=== PATIENT | female | born 1955 | race Caucasian/White ===

== ENCOUNTER 2017-07-09 15:13 | Emergency (ER) | payer BC, SELFPAY ==
[2017-07-09 15:19] VITALS: BP 142/62; PULSE 79; RESP 16; TEMP 36.7; O2SAT 100; BMI 26.6
--- NOTE | 2017-07-09 15:22 | ED.SYNCOPE ---
HPI - Syncope General Chief Complaint: Abdominal Pain Stated Complaint: syncope Time Seen by Provider: 07/09/17 15:22 Source: patient and EMS Mode of arrival: ambulatory Limitations: no limitations History of Present Illness HPI narrative: Patient is a 61-year-old female who presents with a syncopal episode. She was at lunch some friends she was in the corner 27 was beating down on her she had some abdominal discomfort she felt extremely lightheaded and passed out briefly. She has a history of seizures she said she did not have a seizure she did not have convulsions she is or what she postictal. Her seizure history is quite and she has not had them for a number of years and she takes Tegretol daily. She did however have some milk which she does not normally have she is lactose intolerant. She had some abdominal cramping at the same time within a hot corner and felt claustrophobic and passed out briefly. She felt her face get flushed with heart palpitations no nausea or vomiting. Her abdominal pain is much improved now. MD complaint: felt faint Onset (ago): minute(s) Witnessed: yes - by bystander Current symptoms: none Related Data Home Medications Medication Instructions Recorded Confirmed Calcium 1 tab PO DAILY 07/09/17 07/09/17 Vitamin B6 1 tab PO DAILY 07/09/17 07/09/17 Vitamin D3 1 cap PO DAILY 07/09/17 07/09/17 carbamazepine 200 mg PO BID 07/09/17 07/09/17 simvastatin 40 mg PO QHS 07/09/17 07/09/17 Allergies Allergy/AdvReac Type Severity Reaction Status Date / Time No Known Drug Allergies Allergy Verified 07/09/17 17:08 Review of Systems Review of Systems All systems reviewed & are unremarkable except as noted in HPI and below Constitutional Denies chills, Denies fever(s), Denies frequent falls, Denies headache(s), Denies lethargy and Denies weakness Eyes Denies blurry vision and Denies change in vision ENT Ears, Nose, Mouth, and Throat: Denies dizziness and Denies headache(s) Cardiovascular Reports as per HPI, Reports system reviewed and no additional complaints, except as docu, Reports syncope, Denies dyspnea and Denies dyspnea on exertion Respiratory Denies cough, Denies dyspnea, Denies dyspnea on exertion and Denies wheezing Gastrointestinal Gastrointestinal: Denies abdominal pain, Denies change in bowel habits, Denies diarrhea, Denies nausea and Denies vomiting Musculoskeletal Denies back pain, Denies muscle weakness, Denies numbness and Denies tingling Integumentary/Breasts Denies pruritus, Denies erythema, Denies rash and Denies wounds Neurologic Denies confusion, Denies dizziness, Reports syncope, Denies frequent falls, Denies headache(s), Denies numbness, Denies tingling, Denies tremor(s) and Denies weakness Psychiatric Denies confusion Allergic/Immunologic Denies wheezing [facility] Medical History Seizure (Acute) Social History Smoking Status: Never smoker Exam Initial Vital Signs Initial Vital Signs: Vital Signs Temperature 98.0 F 07/09/17 15:19 Pulse Rate 79 07/09/17 15:19 Respiratory Rate 16 07/09/17 15:19 Blood Pressure 142/62 H 07/09/17 15:19 Pulse Oximetry 100 07/09/17 15:19 Const General: cooperative and well developed Nutritional Appearance: well nourished Orientation: alert, awake, oriented x3 and not confused HENMT Head: normal to inspection and normocephalic Eyes Eyelids: eyelids normal Pupils: PERRL EOM: EOM intact bilaterally Resp Effort & Inspection: normal respiratory effort, able to speak in complete sentences, no respiratory distress and no use of accessory muscles Auscultation: clear to auscultation bilaterally, no rales, no rhonchi and no wheezes Cardio Rate: regular rate Rhythm: regular rhythm Heart Sounds: no click, no gallops, no murmurs and no rubs Pulses: normal peripheral pulses GI Inspection: non-distended Palpation: soft, no hepatosplenomegaly, No guarding, No pulsatile mass and No tender Auscultation: normal bowel sounds Skin General: no rashes or lesions noted, No jaundice and No petechiae Neuro General: alert, oriented x3, gait normal and no focal motor deficits Speech: speech normal Motor: muscle tone normal throughout and strength 5/5 throughout Coordination: [id number] test normal Course Hospital Course: Patient does not want an IV or IV fluids but she is okay with the lab drawn and an EKG. Orders Ordered: ED Orders 07/09/17 15:22 EKG-12 Lead Stat 07/09/17 15:40 Complete Blood Count AUTO DIFF Stat Comprehensive Metabolic Panel Stat Lipase Stat Vital Signs - 8 hr 07/09/17 15:19 07/09/17 16:30 07/09/17 17:05 Temperature 98.0 F Pulse Rate 79 75 73 Respiratory Rate 16 15 14 Blood Pressure 142/62 H Blood Pressure [Left Arm] 132/63 H 116/68 Pulse Oximetry 100 98 99 MDM - Syncope Lab Data Result diagrams: 07/09/17 15:40 07/09/17 15:40 Lab Results 07/09/17 07/09/17 Range/Units 15:40 15:40 WBC 6.1 (4.5-11.0) X10^3/uL RBC 4.45 (4.0-5.2) X10^6/uL Hgb 13.9 (12.0-16.0) g/dL Hct 39.7 (36-46) % MCV 89.3 (80-100) fL MCH 31.4 (26-34) PG MCHC 35.1 (30-36) % RDW 12.1 (11.6-14.8) % Plt Count 123 L (150-400) X10^3/uL Neut % (Auto) 69.5 (50-75) % Lymph % (Auto) 23.4 L (25-40) % Wilkinson % (Auto) 5.8 (3-14) % Eos % (Auto) 0.9 L (2-4) % Baso % (Auto) 0.4 (0-2) % Neut # (Auto) 4200 (2775-7268) /uL Sodium 140 (137-145) mmol/L Potassium 4.0 (3.4-5.1) mmol/L Chloride 98 (98-107) mmol/L Carbon Dioxide 32 (22-32) mmol/L BUN 14 (7-17) mg/dL Creatinine 0.70 (0.52-1.04) mg/dL Estimated GFR > 60.0 (>60) mL/min BUN/Creatinine Ratio 20.0 (6-22) Glucose 103 (80-110) mg/dL Calcium 9.5 (8.4-10.2) mg/dL Total Bilirubin 0.4 (0.2-1.3) mg/dL AST 31 (14-36) IU/L ALT 35 (9-52) IU/L Alkaline Phosphatase 96 (38-126) U/L Total Protein 7.2 (6.3-8.2) g/dL Albumin 4.4 (3.5-5.0) g/dL Globulin 2.8 (1.7-4.1) g/dL Albumin/Globulin Ratio 1.6 (1.0-2.8) Lipase 637 H (23-300) U/L MDM Narrative Medical decision making narrative: Lipase is noted to be slightly elevated about 600. She is tolerating oral fluids she does not have any severe abdominal pain. It did discuss with this with her the for pain should return she needs to to come back to the ED. I recommend that she increase her fluid intake. All questions have been addressed. Patient likely had a vasovagal reaction due to multiple factors on including pain, temperature and claustrophobia Discharge Plan Departure Patient Disposition: Home, Self-Care Clinical Impression: Syncope, vasovagal, Elevated lipase Discharge Date/Time: 07/09/17 17:07 Interventions: ED Discharge Assessment Last Done: 07/09/17 17:06 Activity Restrictions/Additional Instructions: *You have been diagnosed with vasovagal reaction, elevated lipase *What to do: Increase fluids, eat frequent meal *Continue to take medications as directed *Follow up with your primary care provider in 2-3 days *Return to ER if you should have increasing abdominal pain, recurrence episode of passing out or any new, worsening or concerning symptoms Prescriptions: No Action simvastatin 40 mg tablet 40 mg PO QHS RF: 0 carbamazepine 200 mg tablet extended release 12 hr 200 mg PO BID RF: 0 Calcium tablet 1 tab PO DAILY RF: 0 Vitamin B6 tablet 1 tab PO DAILY RF: 0 Vitamin D3 capsule 1 cap PO DAILY RF: 0 Referrals: Heri Mckinney MD [Primary Care Provider] -
--- NOTE | 2017-07-09 15:28 | PC.NURSE ---
Pt felt hot and lightheaded after feeling cramping and pain in her abdomen. She states she has a history of heat stroke and is very sensitive to heat. She had a syncopal episode, but denies any injuries.
[2017-07-09 15:48] LABS: Add Manual Diff / Slide Review NO; Basophils Percent Auto 0.4 % (0-2); Eosinophils Percent Auto 0.9 % (2-4); Hematocrit 39.7 % (36-46); Hemoglobin 13.9 g/dL (12.0-16.0); Lymphocytes Percent Auto 23.4 % (25-40); Mean Corpuscular HGB Conc 35.1 % (30-36); Mean Corpuscular Hemoglobin 31.4 PG (26-34); Mean Corpuscular Volume 89.3 fL (80-100); Monocytes Percent Auto 5.8 % (3-14); Neutrophils Absolute Auto 4200 /uL (3000-5900); Neutrophils Percent Auto 69.5 % (50-75); Platelet Count 123 X10^3/uL (150-400); Red Blood Cell Count 4.45 X10^6/uL (4.0-5.2); Red Cell Distribution Width 12.1 % (11.6-14.8); White Blood Cell Count 6.1 X10^3/uL (4.5-11.0)
[2017-07-09 16:05] LABS: Alanine Aminotransferase 35 IU/L (9-52); Albumin 4.4 g/dL (3.5-5.0); Albumin Globulin Ratio 1.6 (1.0-2.8); Alkaline Phosphatase 96 U/L (38-126); Aspartate Aminotransferase 31 IU/L (14-36); Bilirubin Total 0.4 mg/dL (0.2-1.3); Blood Urea Nitrogen 14 mg/dL (7-17); Calcium 9.5 mg/dL (8.4-10.2); Carbon Dioxide 32 mmol/L (22-32); Chloride 98 mmol/L (98-107); Estimated Glomerular Filt Rate > 60.0 mL/min (>60); Globulin 2.8 g/dL (1.7-4.1); Glucose 103 mg/dL (80-110); HEMOLYSIS 20 (0-50); Lipase 637 U/L (23-300); Sodium 140 mmol/L (137-145); Total Protein 7.2 g/dL (6.3-8.2)
[2017-07-09 16:30] VITALS: BP 132/63; PULSE 75; RESP 15; O2SAT 98
[2017-07-09 17:05] VITALS: BP 116/68; PULSE 73; RESP 14; O2SAT 99
== END 2017-07-09 17:07 | disposition home or self-care (01) ==
PROVIDERS: Emergency Provider Emergency Medicine; Family Provider Family Medicine; PCP Family Medicine
DX: R55 Syncope and collapse (principal); R74.8 Abnormal levels of other serum enzymes
CPT/HCPCS: 36415; 80053; 83690; 85025; 93005; 99283; 99284

== ENCOUNTER → 2017-07-21 07:48 | Outpatient (CLI) | payer BC, SELFPAY ==
--- NOTE | 2017-07-21 | DI.US.S_ITS ---
PROCEDURE: US ABDOMEN COMPLETE INDICATIONS: ELEVATED LIPASE TECHNIQUE: Real-time scanning was performed of the abdominal and retroperitoneal organs, with image documentation. COMPARISON: None. FINDINGS: Liver: Liver is normal in size and homogeneous in echotexture. Gallbladder: No gallstones identified. Normal gallbladder wall. No pericholecystic fluid. Negative sonographic Rubi sign. Biliary ducts: Intrahepatic bile ducts are non-dilated. Extrahepatic bile duct caliber measures 6 mm. Normal is 6-7 mm or less in diameter, or 10 mm or less post-cholecystectomy. Pancreas: Visualized portions of the pancreas are sonographically normal. Spleen: Spleen is normal in size and homogeneous in echotexture. Kidneys: Kidneys are normal in size and echotexture. Right kidney measures 9.6 cm long; left kidney measures 9.6 cm long. No hydronephrosis or nephrolithiasis. No solid masses. Aorta: Visualized aorta is normal in caliber at less than 3 cm. Iliacs: Proximal common iliac arteries are normal in caliber at less than 2.5 cm. IVC: Intrahepatic inferior vena cava is patent. Miscellaneous: No free abdominal fluid. IMPRESSION: 1. Normal exam. Dictated by: Alek BROWN Interpreted: Mukesh Ghosh MD on 07/21/2017 at 8:52 Approved by: Mukesh Ghosh M.D. on 07/21/2017 at 15:16
== END ==
PROVIDERS: Family Provider Family Medicine; PCP Family Medicine; Visit Provider Family Medicine
DX: R74.8 Abnormal levels of other serum enzymes (principal)
CPT/HCPCS: 76700

== ENCOUNTER → 2019-06-29 16:07 | Outpatient (CLI) | payer BC, SELFPAY ==
--- NOTE | 2019-06-29 | DI.RAD.S_ITS ---
PROCEDURE: XR LUMBAR SPINE 2-3V INDICATIONS: lumbar pain TECHNIQUE: 3 views of the lumbar spine were acquired. COMPARISON: [facility], , L-SPINE WITHOUT CONTRAST, 05/11/2007, 18:38. FINDINGS: Bones: L1 compression fracture with mild to moderate height loss. Multilevel degenerative endplate sclerosis and spurring. Diffuse facet arthropathy. Diffuse lumbar spondylosis most pronounced at L5-S1 Soft tissues: Overlying bowel gas pattern is normal. No suspicious soft tissue calcifications. IMPRESSION: Mild to moderate L1 compression fracture, which is age indeterminate in the absence of more recent comparison studies. Please correlate clinically Dictated by: Nav Cisneros M.D. on 06/29/2019 at 17:08 Approved by: Nav Cisneros M.D. on 06/29/2019 at 17:10
== END ==
PROVIDERS: Family Provider Family Medicine; PCP Family Medicine; Referring Provider Family Medicine; Visit Provider Family Medicine
DX: M54.5 Low back pain (principal); M48.56XA Collapsed vertebra, not elsewhere classified, lumbar region, initial encounter for fracture; M47.817 Spondylosis without myelopathy or radiculopathy, lumbosacral region
CPT/HCPCS: 72100

== ENCOUNTER → 2019-07-12 12:24 | Outpatient (CLI) | payer BC, SELFPAY | PROVIDERS: Family Provider Family Medicine; PCP Family Medicine; Referring Provider Family Medicine; Visit Provider Family Medicine | DX: M81.0 Age-related osteoporosis without current pathological fracture (principal); Z78.0 Asymptomatic menopausal state; S32.010A Wedge compression fracture of first lumbar vertebra, initial encounter for closed fracture; Z82.62 Family history of osteoporosis; Z87.891 Personal history of nicotine dependence | CPT/HCPCS: 77080 ==

== ENCOUNTER → 2019-08-26 13:59 | Outpatient (CLI) | payer BC, SELFPAY ==
[2019-08-26] MEDS: ZOLEDRONIC ACID 5 MG in SODIUM CHLORIDE 0.9% 100 ML 318.75 ML IV (14:57)
== END ==
PROVIDERS: Family Provider Family Medicine; PCP Family Medicine; Referring Provider Family Medicine; Visit Provider Family Medicine
DX: M81.0 Age-related osteoporosis without current pathological fracture (principal)
CPT/HCPCS: 96365; J3489

== ENCOUNTER → 2020-02-16 10:13 | Outpatient (CLI) | payer MEDICARE, SELFPAY ==
[2020-02-16 12:00] LABS: COVID19 -Nasal RAPID Negative (Negative)
== END ==
PROVIDERS: Family Provider Family Medicine; PCP Family Medicine; Visit Provider Physician Assistant
DX: Z01.812 Encounter for preprocedural laboratory examination (principal); Z20.828 Contact with and (suspected) exposure to other viral communicable diseases
CPT/HCPCS: 87635; C9803

== ENCOUNTER 2020-02-18 11:56 | Day surgery (SDC) | payer MEDICARE, SELFPAY ==
[2020-02-18] VITALS (7 sets, daily range): BP systolic 115–145; BP diastolic 58–87; PULSE 58–100; RESP 14–18; TEMP 36.3–37.1; O2SAT 94–98; BMI 25.7
--- NOTE | 2020-02-18 11:58 | P.HP_ITS ---
History of Present Illness History of Present Illness Date Patient Seen: 02/18/20 Time Patient Seen: 11:58 Chief complaint: [facility] [place] Narrative: 64 year old female comes in today for consideration of a screening colonoscopy. Last colonoscopy in 2003, normal. There have been no lower GI symptoms suggesting disease such as change in bowel habits, bleeding, abdominal pain or anemia. There's been no family history of colon cancer or colon polyps. Overall health issues have been stable, including no major cardiac events for at least 6 weeks. PCP: Dr. Mckinney Past medical history: Osteoporosis Actinic keratosis Low back pain Seizure disorder Hyperlipidemia Obstructive sleep apnea Endometriosis Lichen simplex chronicus ADD Wedge compression fracture, L1 Past surgical history: Breast reduction Nasal surgery Family history: No colon cancer colon polyps Social history: , homemaker. Patient History Medical History (Updated 07/24/17 @ 00:00 by ) Seizure Family & Social History Tobacco & Substance use: Smoking Status Never smoker Meds Home Medications and Allergies Home Medications Medication Instructions Recorded Confirmed Type Vitamin B6 1 tab PO DAILY 07/09/17 02/18/20 History calcium 200 mg PO DAILY 07/09/17 02/18/20 History carbamazepine 200 mg PO BID 07/09/17 02/18/20 History cholecalciferol (vitamin D3) 50 mcg PO DAILY 07/09/17 02/18/20 History [Vitamin D3] simvastatin 40 mg PO QHS 07/09/17 07/09/17 History atorvastatin 40 mg PO BEDTIME 02/18/20 02/18/20 History Allergies Allergy/AdvReac Type Severity Reaction Status Date / Time No Known Drug Allergies Allergy Verified 02/18/20 12:33 Review of Systems Review of Systems ROS: Yes All systems reviewed with the patient and are negative except as o therwise documented Exam Narrative Exam Narrative: GENERAL: Alert and oriented, appearing stated age and in no a cute distress. HEENT: Head normocephalic/atraumatic. Pupils equal, round, and reactive to light and accomodation. Extraocular muscles intact. Tympanic membranes clear. Nasal mucosa moist, septum midline. Oral mucosa moist, no lesions. Neck soft and supple, no lymphadenopathy. LUNGS: Clear to ausculation bilaterally, no wheezes, rhonchi or rales. CV: Normal S1 and S2 with regular rate and rhythm, no audible murmurs, rubs or gallops. ABDOMEN: Soft, non-tender, non-distended, no organomegaly. Positive bowel sounds. EXTREMITIES: No clubbing, cyanosis, or edema. NEURO: Cranial nerves II through XII grossly intact, no focal deficits. PSYCH: Alert and oriented x 3. SKIN: No concerning lesions. Assessment & Plan Assessment & Plan narrative: 1. Screening for colon cancer Plan for colonoscopy. The nature and character of the procedure as well as anticipated results were discussed. The possibility of not completing the procedure was also discussed. Possible complications including aspiration pneumonia, bleeding, perforation and reaction to medications either for sedation or preparation and missed lesions were discussed. Questions were answered and proceeding to the colonoscopy was elected. Informed consent signed. I sincerely appreciate the referral allowing me to participate in this patient's care. Please contact me with any questions or concerns.
--- NOTE | 2020-02-18 12:01 | PM.OP.ENDO ---
Operative Date/Time/Diagnoses Date of procedure: 02/18/20 Procedure & Clinicians Surgeon: Heide Gardner Procedure Notes SCOAP/Timeout: 1:18 p.m. Procedure in detail: ENDOSCOPIST: Heide Gardner MD Sedation RN: Jazzy Wagner RN Sedation start time: 1:19 p.m. Sedation end time: 1:41 p.m. PROCEDURE: Colonoscopy INDICATIONS: 1. Screening for colon cancer MEDICATION: Levsin 0.125 mg sublingual, incremental doses of Versed and fentanyl until appropriate level sedation achieved. ASA CLASS: 2 CECAL WITHDRAWAL TIME: 12 minutes COMPLICATIONS: None. EXTENT OF PROCEDURE: Cecum. QUALITY OF PREP: Good with portions of liquid stool. PROCEDURE: Prior to insertion of the colonoscope, a digital rectal examination was accomplished with circumferential palpation of the distal rectal mucosa without significant findings being noted. The high-definition pediatric colonoscope was passed into the rectum in the usual fashion and advanced over to the cecum without difficulty. The ileocecal valve, appendiceal stoma, and medial wall all could be inspected and no abnormalities were seen. ASCENDING COLON: As the colonoscope was withdrawn, care was taken to expose and inspect the haustral folds and no abnormalities were seen. HEPATIC FLEXURE: Normal, no polyps, diverticula or other abnormalities. TRANSVERSE COLON: Normal, no polyps, diverticula or other abnormalities. DESCENDING COLON: Normal, no polyps, diverticula or other abnormalities. SIGMOID COLON: Normal, no polyps, diverticula or other abnormalities. RECTUM: Normal. J maneuver was produced. There was no significant perianal disease. The J maneuver was broken. The remainder of the rectum was inspected and there was no external hemorrhoid disease. The scope was withdrawn. IMPRESSION: 1. Normal colonoscopy PLAN: 1. Repeat colonoscopy in 10 years. The possibility of a missed lesion including a malignancy has been discussed with the patient previously. Potential alarm symptoms have been discussed and should be reported immediately.
[2020-02-18] MEDS: HYOSCYAMINE 0.125 MG TABLET PO (12:36)
[2020-02-18] MEDS: LACTATED RINGERS 1,000 ML 200 ML IV (12:52)
[2020-02-18] MEDS: fentaNYL 250 MCG/5 ML INJ IV (13:21)
[2020-02-18] MEDS: MIDAZOLAM 5 MG/5 ML VIAL IV (13:21)
== END 2020-02-18 14:45 | disposition home or self-care (01) ==
PROVIDERS: Family Provider Family Medicine; PCP Family Medicine; Referring Provider Student in an Organized Health Care Education/Training Program; Visit Provider Student in an Organized Health Care Education/Training Program
PROC: 0DJD8ZZ Inspection of Lower Intestinal Tract, Via Natural or Artificial Opening Endoscopic (ICD-10-PCS; CPT 45378; principal; 2020-02-18 13:00)
DX: Z12.11 Encounter for screening for malignant neoplasm of colon (principal); G47.33 Obstructive sleep apnea (adult) (pediatric); E78.5 Hyperlipidemia, unspecified; G40.909 Epilepsy, unspecified, not intractable, without status epilepticus
CPT/HCPCS: G0121; J2250; J3010

== ENCOUNTER → 2020-03-24 17:13 | Outpatient (CLI) | payer MEDICARE, SELFPAY ==
--- NOTE | 2020-03-24 17:17 | DI.MRI.S_ITS ---
PROCEDURE: MR LUMBAR SPINE WO CON INDICATIONS: Wedge compression fx first lumbar vertebra TECHNIQUE: Noncontrast sagittal T1 spin echo and T2 fast echo, sagittal STIR, axial T1 and T2 fast spin echo through the lumbar spine. In cases with scoliosis, additional coronal T2 fast spin echo may be performed. COMPARISON: [facility], MR, L-SPINE WITHOUT CONTRAST, 05/11/2007, 18:38. [facility], MR, L-SPINE WITHOUT CONTRAST, 09/30/2005, 8:13. FINDINGS: Image quality: Excellent. Alignment and Curvature: There is normal bony alignment. Bone Marrow: Marrow is of normal overall signal. No acute vertebral body compression fractures. Spinal Cord: Conus medullaris terminates at the L1 level. Visualized cord demonstrates normal signal and size. Paraspinous Soft Tissues: No paravertebral masses. T11-L1: At T11 there is a superior endplate mild impaction fracture without retropulsion of bone fragments into the spinal canal. This appears acute and has a morphology of central Schmorl's node superiorly. Expected mild edema and associated enhancement is present. At T12 there is a superior endplate mild impaction fracture, centered more posteriorly than at the level immediately above, this also is not associated with retropulsion of bone fragments into the spinal canal. Mild edema and enhancement is present. Finally, at L1 there is a moderate wedge type compression fracture, with a 58% anterior L1 height reduction when compared to the L2 level immediately below. There also is a 18% posterior height reduction when compared to the posterior margin of L2. The upper posterior L1 vertebral body margin is distorted and slightly displaced posteriorly without significant spinal canal narrowing at this time. L1-L2: Minimal degenerative disc disease with the small posterior disc bulge. No significant spinal or foraminal stenosis. L2-L3: Mild to moderate degenerative disc disease, with mild disc height reduction and a [id number] posterior disc bulge at the midline, without disc herniation. This produces mild spinal stenosis at this level. Mild facet osteoarthritis L3-L4: Minimal desiccation. Mild facet osteoarthritis. L4-L5: Minimal desiccation, slight posterior disc bulge without significant spinal stenosis. Moderate facet osteoarthritis, moderate ligamentum flavum hypertrophy, concentric moderate spinal stenosis and bilateral moderate foraminal stenosis. L5-S1: Worsening degenerative disc disease with reference to the prior study from 2005, with moderate disc height reduction and a small posterior disc bulge. IMPRESSION: 1. Three level compression fractures, involving T11, T12 and L1. The L1 compression fracture is moderately severe with a 58% anterior vertebral height reduction and also a smaller degree of height reduction posteriorly. The fracture at this level extends into the posterior 3rd of the vertebral body and results in a small degree of retropulsion of the upper posterior L1 vertebral body into the spinal canal. This is considered a potentially unstable fracture with potential for further retropulsion. Orthopedic patient transition specialist consultation likely is warranted. 2. Multilevel degenerative disc disease and facet osteoarthritis, with potential for spinal and foraminal stenosis as discussed in detail by level in the body of the report above. A disc herniation is not currently found. Dictated by: Mukesh Ghosh M.D. on 03/27/2020 at 9:41 Approved by: Mukesh Ghohs M.D. on 03/27/2020 at 9:54
== END ==
PROVIDERS: Family Provider Family Medicine; PCP Family Medicine; Referring Provider Family Medicine; Visit Provider Family Medicine
DX: S32.010A Wedge compression fracture of first lumbar vertebra, initial encounter for closed fracture (principal); M48.54XA Collapsed vertebra, not elsewhere classified, thoracic region, initial encounter for fracture; M51.36 Other intervertebral disc degeneration, lumbar region; M51.37 Other intervertebral disc degeneration, lumbosacral region; M47.816 Spondylosis without myelopathy or radiculopathy, lumbar region
CPT/HCPCS: 72148

== ENCOUNTER → 2021-10-22 10:59 | Outpatient (CLI) | payer MEDICARE, SELFPAY | PROVIDERS: Family Provider Family Medicine; PCP Family Medicine; Referring Provider Family Medicine; Visit Provider Family Medicine | DX: M81.0 Age-related osteoporosis without current pathological fracture (principal); M85.89 Other specified disorders of bone density and structure, multiple sites | CPT/HCPCS: 77080 ==

== ENCOUNTER → 2023-03-18 11:52 | Outpatient (CLI) | payer MEDICARE, SELFPAY ==
--- NOTE | 2023-03-18 | DI.CT.S_ITS ---
PROCEDURE: CT ABDOMEN PELVIS W CON INDICATIONS: Constipation,Dizziness and giddiness TECHNIQUE: After the administration of intravenous contrast, axial sections acquired from the lung bases to the pubic symphysis. Coronal and sagittal reformats were performed. For radiation dose reduction, the following was used: automated exposure control, adjustment of mA and/or kV according to patient size. COMPARISON: None. FINDINGS: Image quality: Diagnostic. Lower Chest: No significant findings. ABDOMEN: Liver: No solid mass. Gallbladder: No radiopaque gallstones or wall thickening. Biliary ducts: No biliary dilation. Pancreas: No ductal dilation. Spleen: Size is within normal limits. Adrenal Glands: No adrenal nodules. Kidneys and Ureters: No hydronephrosis. No solid mass. No complex renal cystic lesion which requires follow up. Stomach and Bowel: Normal colonic caliber, without significant wall thickening. Large diffuse fecal load. Peritoneum: No abnormal intraperitoneal fluid. No free air. Ventral Wall: No significant ventral hernia. Abdominal Nodes: No retroperitoneal or mesenteric adenopathy by size criteria. Vessels: Aorta and inferior vena cava are normal in size. PELVIS: Pelvic Organs: Unremarkable. Bladder: No bladder wall thickening, accounting for underdistention. Pelvic Nodes: No enlarged lymph nodes. Miscellaneous: No inguinal hernias are seen. Bones: No aggressive osseous abnormality. Old moderate to severe L1 compression. No acute compressions noted. Lumbar degenerative change. Severe canal stenosis at L4-L5. Severe bilateral foraminal stenosis L5-S1. IMPRESSION: 1. No acute abdominal process. 2. Large diffuse fecal load. 3. Presumed osteoporotic compression fracture. 4. Degenerative change with severe canal stenosis at L4-L5 and severe bilateral foraminal stenosis at L5-S1. Dictated by: Thad Joseph M.D. on 03/18/2023 at 15:53 Approved by: Thad Joseph M.D. on 03/18/2023 at 16:07
== END ==
PROVIDERS: Family Provider Family Medicine; PCP Family Medicine; Referring Provider Registered Nurse; Visit Provider Registered Nurse
DX: R42 Dizziness and giddiness (principal); K59.00 Constipation, unspecified; E87.1 Hypo-osmolality and hyponatremia; M47.816 Spondylosis without myelopathy or radiculopathy, lumbar region; M48.061 Spinal stenosis, lumbar region without neurogenic claudication; M48.07 Spinal stenosis, lumbosacral region
CPT/HCPCS: 74177; Q9967

== ENCOUNTER → 2023-04-07 16:02 | Outpatient (CLI) | payer MEDICARE, SELFPAY ==
--- NOTE | 2023-04-07 | DI.ECHO.S_ITS ---
[facility]---------+ [facility] +---------+ : : [address] [place] [place] : : : : [id number] : : : : Phone: [phone]+ Echocardiogram Report + + :Name: ZE TAPIA Study Date: 04/07/2023 Height: 62 in : :[facility] ReadingLocation: Weight: 140 lb : : Gender: Female BSA: 1.6 m2 : :: 1955 Age: 67 yrs BP: 156/95 mmHg: :Reason For Study: DIZZINESS AND GIDDINESS : :Ordering Physician: TINA, : :GENESIS Performed By: Malick Astorga : :Referring: GENESIS WILDER : + + Interpretation Summary The left ventricular cavity is small. The ejection fraction is estimated to be 65-70%. There is mild mitral regurgitation. Procedure: A two-dimensional transthoracic echocardiogram with color flow and Doppler was performed. The study quality was technically adequate. There is no prior echocardiogram noted for this patient. The patient was in normal sinus rhythm during the exam. The heart rate ranged between 63-75 bpm during the study. Left Ventricle: The left ventricular cavity is small. There is normal left ventricular wall thickness. The ejection fraction is estimated to be 65-70%. There are no obvious focal wall motion abnormalities noted but poor endocardial definition reduces the sensitivity for the detection of such. Right Ventricle: The right ventricle is normal in size and function. Atria: The left atrial size is normal. Right atrial size is normal. Mitral Valve: The mitral valve is normal in structure and function. There is no mitral valve stenosis. There is mild mitral regurgitation. Aortic Valve: The aortic valve is trileaflet. There is no aortic valve stenosis. No aortic regurgitation is present. Tricuspid Valve: The tricuspid valve is normal in structure and function. There is no tricuspid stenosis. No tricuspid regurgitation. Pulmonic Valve: The pulmonic valve is not well visualized. There is no pulmonic valvular stenosis. There is no pulmonic valvular regurgitation. Great Vessels: The aortic root is normal size. The dimensions of the ascending aorta are normal. The inferior vena cava appeared normal. Pericardium/ Pleura There is no pericardial effusion. There is no pleural effusion. MMode/2D Measurements & Calculations LVIDd: 4.3 cm LVOT diam: 2.0 cm LVIDs: 3.0 cm Ao root diam: 3.0 cm FS: 30.4 % asc Aorta Diam: 3.5 cm IVSd: 1.0 cm Ao Arch Diam (Prox Trans): 2.4 cm LVPWd: 0.90 cm LV arenas. diameter/BSA (cm/m^2): 2.6 LV sys. diameter/BSA (cm/m^2): 1.8 LA A2 area: 12.5 cm2 RA long axis: 3.3 cm LA A4 area: 10.5 cm2 RA area: 8.6 cm2 LA length (vol): 4.0 cm RA vol: 18.9 ml LA vol: 27.9 ml RA : 11.5 ml/m2 LA vol index: 17.0 ml/m2 IVC diam: 1.8 cm RVD1 (basal): 3.1 cm RVD2 (mid): 3.0 cm TAPSE: 2.3 cm Doppler Measurements & Calculations Ao V2 max: 126.7 cm/sec LVOT Max Wesley: 93.6 cm/sec Ao V2 mean: 86.0 cm/sec LV V1 max P.5 mmHg Ao max P.4 mmHg LV V1 VTI: 22.3 cm Ao mean P.4 mmHg SHAMEKA(I,D): 2.5 cm2 Ao V2 VTI: 28.5 cm SHAMEKA(V,D): 2.4 cm2 sev ratio: 0.78 SHAMEKA indexed to BSA (cm^2/m^2): 1.5 MV E max wesley: 86.2 cm/sec PA V2 max: 95.3 cm/sec MV A max wesley: 84.4 cm/sec PA V2 mean: 59.7 cm/sec MV E/A: 1.0 PA mean P.6 mmHg Med Peak E' Wesley: 8.2 cm/sec PA pr(Accel): 32.8 mmHg E/E' med: 10.5 Lat Peak E' Wesley: 9.7 cm/sec E/E' lat: 8.9 E/e' average: 9.7 MV dec time: 0.20 sec SV(LVOT): 71.6 ml Electronically signed by: Starla Medrano on Reading Physician:04/07/2023 07:56 PM
== END ==
LOC: ECHO 16:03
PROVIDERS: Family Provider Family Medicine; PCP Family Medicine; Referring Provider Registered Nurse; Visit Provider Registered Nurse
DX: I34.0 Nonrheumatic mitral (valve) insufficiency (principal); R42 Dizziness and giddiness
CPT/HCPCS: 93306

== ENCOUNTER → 2023-06-30 14:38 | Outpatient (CLI) | payer MEDICARE, SELFPAY ==
--- NOTE | 2023-06-30 14:42 | DI.RAD.S_ITS ---
PROCEDURE: XR HIP W PEL IF DONE LT 2V INDICATIONS: Pain in left hip TECHNIQUE: 2 views of the hip were acquired. COMPARISON: [facility], , HIP 2V LEFT, 03/31/2007, 13:10. FINDINGS: Bones: No fractures or dislocations. No suspicious bony lesions. The visualized pelvic ring appears intact. Mild nonuniform joint space narrowing with osteophytic lipping of the acetabulum. Soft tissues: No suspicious soft tissue calcifications or masses. IMPRESSION: Mild to moderate left hip osteoarthritis. Dictated by: Tab Ramirez M.D. on 06/30/2023 at 16:41 Approved by: Tab Ramirez M.D. on 06/30/2023 at 16:41
--- NOTE | 2023-06-30 14:42 | DI.RAD.S_ITS ---
PROCEDURE: XR HAND RT MIN 3V INDICATIONS: 5TH FINGER PAIN AFTER A FALL TECHNIQUE: 3 views of the hand(s) acquired. COMPARISON: [facility], , HAND 3V RIGHT, 10/12/2013, 16:40. [facility], , HAND 3V RIGHT, 06/27/2009, 9:57. FINDINGS: Bones: No fractures or dislocations. Carpal bones are normally aligned. No suspicious bony lesions. Soft tissues: No suspicious soft tissue calcifications. Soft tissue swelling about the 5th MCP joint. IMPRESSION: Soft tissue swelling about the 5th MCP joint, without underlying fracture identified. Dictated by: Tab Ramirez M.D. on 06/30/2023 at 16:41 Approved by: Tab Ramirez M.D. on 06/30/2023 at 16:42
== END ==
LOC: RAD 14:40
PROVIDERS: Family Provider Family Medicine; PCP Family Medicine; Referring Provider Registered Nurse; Visit Provider Registered Nurse
DX: S69.91XA Unspecified injury of right wrist, hand and finger(s), initial encounter (principal); M79.89 Other specified soft tissue disorders; M16.12 Unilateral primary osteoarthritis, left hip; M25.552 Pain in left hip; W19.XXXA Unspecified fall, initial encounter
CPT/HCPCS: 73130; 73502

== ENCOUNTER → 2023-11-24 11:10 | Outpatient (CLI) | payer MEDICARE, SELFPAY ==
--- NOTE | 2023-11-24 | DI.RAD.S_ITS ---
PROCEDURE: XR DEXA AXIAL SKELETON INDICATIONS: OSTEOPOROSIS SCREENING COMPARISON: [facility], [place], XR DEXA AXIAL SKELETON, 10/22/2021, 11:17. FINDINGS: Lumbar Spine: Bone mineral density 1.012 g/cm2, T score -0.6, compared to -0.7. Left Hip: Bone mineral density 0.745 g/cm2, T score -1.6, compared to -1.7. Left Femoral Neck: Bone mineral density 0.647 g/cm2, T score -1.8, compared to -2.1. Right Hip: Bone mineral density 0.705 g/cm2, T score -1.9, compared to -1.7. Right Femoral Neck: Bone mineral density 0.575 g/cm2, T score -2.5, compared to -2.1. Fracture Risk Calculation (when applicable): 10-year fracture risk of a major osteoporotic fracture 22% percent and of a hip fracture 5.1% percent. (T score greater or equal to -1.0 to: NORMAL) (T score from -1.1 to -2.4: OSTEOPENIA) (T score less than or equal to -2.5: OSTEOPOROSIS) IMPRESSION: Osteoporosis in the right femoral neck progressive. Otherwise, [id number] osteopenia. Follow-up guidelines as follows: Osteoporosis: Consider a repeat DEXA and Vertebral Fracture Assessment (VFA) exam in 2 years or sooner if medically necessary, to reassess this patient's status. Osteopenia: Consider a repeat DEXA in 2-3 years to reassess this patient's status, or if there is a new clinical indication. Normal: Consider a repeat DEXA in 5 years or sooner, or if there is a new clinical indication. All treatment decisions require clinical judgment and consideration of individual patient factors, including patient preferences, comorbidities, previous drug use, risk factors not captured in the FRAX model (e.g., frailty, falls, vitamin D deficiency, increased bone turnover, interval significant decline in bone density ) and possible under- or over-estimation of fracture risk by FRAX. In addition, the NOF Guide recommends that FDA-approved medical therapies be considered in postmenopausal women and men age >= 50 years with a: * Hip or vertebral (clinical or morphometric) fracture * T-score of <=-2.5 at the spine or hip * Ten-year fracture probability by FRAX of >= 3% for hip fracture or >=20% for major osteoporotic fracture. People with diagnosed cases of osteoporosis or at high risk for fracture should have regular bone mineral density tests. For patients eligible for Medicare, routine testing is allowed once every 2 years. The testing frequency can be increased to one year for patients who have rapidly progressing disease, those who are receiving or discontinuing medical therapy to restore bone mass, or have additional risk factors. Dictated by: Moriah Knight M.D. on 11/24/2023 at 22:35 Approved by: Moriah Knight M.D. on 11/24/2023 at 22:36
== END ==
PROVIDERS: Family Provider Family Medicine; PCP Family Medicine; Referring Provider Family Medicine; Visit Provider Family Medicine
DX: M81.0 Age-related osteoporosis without current pathological fracture (principal)
CPT/HCPCS: 77080

== ENCOUNTER → 2023-12-21 12:47 | Outpatient (CLI) | payer MEDICARE, SELFPAY ==
--- NOTE | 2023-12-21 12:49 | DI.MRI.S_ITS ---
PROCEDURE: MR LUMBAR SPINE WO CON INDICATIONS: spinl stenosis TECHNIQUE: Noncontrast sagittal T1 spin echo and T2 fast echo, sagittal STIR, and T2 fast spin echo through the lumbar spine. In cases with scoliosis, additional coronal T2 fast spin echo may be performed. COMPARISON: [facility], MR, MR LUMBAR SPINE WO CON, 03/24/2020, 17:45. FINDINGS: Image quality: Excellent. Alignment and Curvature: There is trace retrolisthesis of L1 on L2, L2 on L3, L3 on. Bone Marrow: Marrow is of normal overall signal. Minimal reactive endplate changes are present,. Endplate deformity with Schmorl's nodes are present T11, T12. No acute vertebral body compression fractures. Old compression deformity is stable. Spinal Cord: Conus medullaris terminates at the L1 level. Visualized cord demonstrates normal signal and size. Paraspinous Soft Tissues: No paravertebral masses. Discs: Multilevel [id number] disc desiccation severe L1-L2,. T12-L1: Minimal disc bulge with effacement of the anterior thecal sac. No foraminal narrowing. L1-L2: Minimal disc bulge without stenosis or foraminal narrowing. L2-L3: Mild disc bulge spinal stenosis. No foraminal narrowing. Facet and ligamentum flavum hypertrophy are present. L3-L4: Mild disc bulge with moderate spinal stenosis. Moderate left foraminal narrowing with facet and ligamentum hypertrophy. This is overall mildly progressive compared to 2020. L4-L5: Mild disc bulge with severe spinal stenosis progressive, severe right and moderate left foraminal narrowing with facet and ligamentum flavum hypertrophy, progressive. L5-S1: Mild disc bulge with mild spinal stenosis. Moderate to severe bilateral foraminal narrowing with facet and ligamentum flavum hypertrophy, stable. IMPRESSION: Multilevel degenerative changes with interval progression compared to 2020 is above. Multilevel spinal stenosis most severe at L4-5 secondary to disc bulge with contributing effect of facet/ligamentum flavum arthropathy Dictated by: Moriah Knight M.D. on 12/22/2023 at 17:44 Approved by: Moriah Knight M.D. on 12/22/2023 at 17:49
== END ==
PROVIDERS: Family Provider Family Medicine; PCP Family Medicine; Referring Provider Physical Medicine & Rehabilitation; Visit Provider Physical Medicine & Rehabilitation
DX: M47.26 Other spondylosis with radiculopathy, lumbar region (principal); M47.27 Other spondylosis with radiculopathy, lumbosacral region; M51.16 Intervertebral disc disorders with radiculopathy, lumbar region; M51.17 Intervertebral disc disorders with radiculopathy, lumbosacral region; M48.061 Spinal stenosis, lumbar region without neurogenic claudication; M48.07 Spinal stenosis, lumbosacral region; S22.080A Wedge compression fracture of T11-T12 vertebra, initial encounter for closed fracture; S22.089A Unspecified fracture of T11-T12 vertebra, initial encounter for closed fracture; S32.019A Unspecified fracture of first lumbar vertebra, initial encounter for closed fracture
CPT/HCPCS: 72148

== ENCOUNTER 2024-01-13 11:53 | Outpatient (CLI) | payer MEDICARE, SELFPAY ==
[2024-01-13] VITALS (10 sets, daily range): BP systolic 133–172; BP diastolic 67–85; PULSE 65–83; RESP 12–20; TEMP 37.5; O2SAT 95–100
--- NOTE | 2024-01-13 11:54 | DI.RAD.S_ITS ---
PROCEDURE: PAIN L/S TRANSFORAMINAL INJECT INDICATIONS: Left L4-5 transforaminal ESTELLA COMPARISON: None. FINDINGS/IMPRESSION: Fluoroscopic spot filming was performed to verify placement of spinal needles at the L4-5 level(s), as labeled on the films. Appropriate location(s) of the needle tip(s) was confirmed by injection of iodinated contrast. Dictated by: Moriah Knight M.D. on 01/13/2024 at 16:05 Approved by: Moriah Knight M.D. on 01/13/2024 at 16:05
[2024-01-13] MEDS: MIDAZOLAM 2 MG/2 ML VIAL IV (13:38)
[2024-01-13] MEDS: iopamidoL 15 ML VIAL 3 ML INJ (13:43)
[2024-01-13] MEDS: BETAMETHASONE 30 MG/5 ML MDV 12 MG INJ (13:44)
[2024-01-13] MEDS: DEXAMETHASONE 10 MG/ML VIAL INJ (13:44)
[2024-01-13] MEDS: BUPIVACAINE 0.25% (PF) VIAL 2 ML INJ (13:44)
--- NOTE | 2024-01-13 13:56 | P.PCN_ITS ---
Date/Time/Diagnoses Date of procedure: 01/13/24 Time of procedure: 13:56 Pre-procedure diagnosis: 1. FORAMINAL STENOSIS WITH LE SYMPTOMS Post-procedure diagnosis: same Procedure Notes Procedure: 1. FLUOROSCOPICALLY GUIDED CONTRAST CONTROLLED TRANSFORAMINAL EPIDURAL STEROID INJECTION - LEFT L4/5 Indications: Kristin is referred by Dr. Mckinney for treatment of Foraminal Stenosis with Left LE Symptoms Physician: Heri Garcia Total Fluoroscopy time (seconds): 9 Total sedation minutes: 13 Complications: none Procedure in detail & Post-procedure care: FINDINGS Foraminal Nerve Root Compression secondary to disc disease and facet hypertrophy DESCRIPTION OF PROCEDURE Following review of allergy and review of potential side effects and complications, including, but not necessarily limited to, infection, allergic reaction, local tissue breakdown, stroke, temporary or permanent nerve injury, paralysis, and possible , the patient indicated that the patient understood and agreed to proceed. An informed consent document was signed by the patient, witnessed by a nurse, and placed in the patient's chart. Additionally, other treatment options including medications, modalities, and physical therapy were reviewed with the patient. After review of previous anaesthesic history and IV conscious sedation the patient was deemed safe to proceed with today?s procedure with IV conscious sedation as ASA class II designation. Safety time-out was performed to confirm patient ID, procedure to be performed and site of procedure. IV sedation was accomplished with a combination of 2mg of Versed administered by the RN after DO order, titrated to patient comfort during the course of the procedure while the patient remained responsive to all verbal commands In the prone position following sterile prep and drape of the lumbar region, the left L4/5 posterior neuroforamen was identified fluoroscopically. The skin was anesthetized via a 25-gauge 1.5-inch needle with 1% lidocaine solution. At this point, a 25-gauge 3.5-inch spinal needle was atraumatically introduced and advanced under fluoroscopic guidance through the posterior left L4/5 neuroforamen to approximately the anterior aspect of the canal. Depth was confirmed on lateral view. Following negative aspiration, injection of approximately 1.5 cc of Isovue 200 under live fluoroscopy in the AP view confirmed excellent flow along the nerve root, into the epidural space without vascular or intrathecal uptake observed Radiological data, including multiple fluoroscopic views of the lumbosacral spine, reveal a spinal needle at the left L4/5 posterior neuroforamen. Subsequent views show flow of contrast material flowing superiorly and inferiorly along the nerve root confirming epidural flow. Subsequently, a test dose of 1.5 cc of 1% lidocaine solution was administered and patient was observed for two minutes for signs or symptoms of complications, including abdominal pain, shortness of breath, bilateral upper or lower extremity weakness, nausea and vomiting, prior to steroid injection. At this point, a total of 2cc or 10mg of dexamethasone and 6mg of betamethasone was injected without incident. The procedure tolerated the procedure well without signs or symptoms of complications prior to transfer to the recovery area continued monitoring without incident. The patient was then transferred to the recovery area where they were observed for an appropriate time after the injection. The patient reported a VAS score of 7 prior to the procedure and a post- procedure VAS of 0. POST OP INSTRUCTIONS The patient was provided a Pain Log to continue to record their response to the target-specific procedure prior to follow-up visit with their referring physician. Additionally, specific post-injection care instructions and a contact number to our office were provided if concerns arise regarding possible complications associated with the procedure are suspected.
== END 2024-01-13 14:25 | disposition home or self-care (01) ==
PROVIDERS: Family Provider Family Medicine; PCP Family Medicine; Referring Provider Physical Medicine & Rehabilitation; Visit Provider Physical Medicine & Rehabilitation
DX: M48.061 Spinal stenosis, lumbar region without neurogenic claudication (principal); M51.16 Intervertebral disc disorders with radiculopathy, lumbar region; M47.26 Other spondylosis with radiculopathy, lumbar region
CPT/HCPCS: 64483; 99152; J0702; J1100; J2250; J3490

== ENCOUNTER → 2024-04-13 09:51 | Outpatient (CLI) | payer OTHER, SELFPAY ==
--- NOTE | 2024-04-13 09:53 | DI.RAD.S_ITS ---
PROCEDURE: XR RIBS RT MIN 3V W CXR 1V INDICATIONS: RIB PAIN' TECHNIQUE: 2 views of the right ribs were acquired, along with a single view chest. COMPARISON: None. FINDINGS: Surgical changes and devices: None. Bones and chest wall: No fractures or dislocations. No suspicious bony lesions. Overlying soft tissues appear unremarkable. Lungs and pleura: No pleural effusions or pneumothorax. Lungs appear clear. Mediastinum: Mediastinal contours appear normal. Heart size is normal. IMPRESSION: No displaced rib fracture or pneumothorax. No acute cardiopulmonary disease process. Dictated by: Imani Torres MD, PhD on 04/13/2024 at 11:34 Approved by: Imani Torres MD, PhD on 04/13/2024 at 11:35
== END ==
PROVIDERS: Family Provider Family Medicine; PCP Family Medicine; Referring Provider Family Medicine; Visit Provider Family Medicine
DX: R07.81 Pleurodynia (principal)
CPT/HCPCS: 71101

== ENCOUNTER → 2024-06-09 13:00 | Outpatient (CLI) | payer OTHER, SELFPAY ==
--- NOTE | 2024-06-09 13:02 | DI.RAD.S_ITS ---
PROCEDURE: XR FOOT LT 2V INDICATIONS: FOOT PAIN TECHNIQUE: 2 views of the foot were acquired. COMPARISON: None. FINDINGS: Bones: No fractures or dislocations. No suspicious bony lesions. Soft tissues: No tibiotalar joint effusion. Achilles tendon appears normal. IMPRESSION: No visualized acute fracture or dislocation. However, if clinical concern and/or pain persist, short interval imaging followup in 7-10 days is recommended, as occult injury cannot be definitively excluded. Dictated by: Moriah Knight M.D. on 06/09/2024 at 21:28 Approved by: Moriah Knight M.D. on 06/09/2024 at 21:29
--- NOTE | 2024-06-09 13:02 | DI.RAD.S_ITS ---
PROCEDURE: XR FOOT RT 2V INDICATIONS: FOOT PAIN TECHNIQUE: 2 views of the foot were acquired. COMPARISON: None. FINDINGS: Bones: No fractures or dislocations. No suspicious bony lesions. IP narrowing. Soft tissues: No tibiotalar joint effusion. Achilles tendon appears normal. IMPRESSION: No visualized acute fracture or dislocation. However, if clinical concern and/or pain persist, short interval imaging followup in 7-10 days is recommended, as occult injury cannot be definitively excluded. Dictated by: Moriah Knight M.D. on 06/09/2024 at 21:29 Approved by: Moriah Knight M.D. on 06/09/2024 at 21:29
== END ==
PROVIDERS: Family Provider Family Medicine; PCP Family Medicine; Referring Provider Family Medicine; Visit Provider Family Medicine
DX: M79.671 Pain in right foot (principal); M79.672 Pain in left foot; M54.16 Radiculopathy, lumbar region; M16.12 Unilateral primary osteoarthritis, left hip; S32.010S Wedge compression fracture of first lumbar vertebra, sequela; S22.080S Wedge compression fracture of T11-T12 vertebra, sequela
CPT/HCPCS: 73620; 99214